=== PATIENT | male | born 1990 | race Caucasian/White ===

== ENCOUNTER 2025-01-11 06:35 | Day surgery (SDC) | payer BC, MEDICAID, OTHER ==
[2025-01-11] MEDS ORDERED: fentaNYL 100 MCG/2 ML SDV ONE (07:19)
[2025-01-11] MEDS ORDERED: Midazolam 1 MG/ML 2 ML SDV ONE (07:19)
[2025-01-11] MEDS ORDERED: Propofol 200 MG/20 ML SDV ONE (07:19)
[2025-01-11] MEDS: Lactated Ringers 1,000 ML IV SCH (07:38)
== END 2025-01-11 09:27 | disposition home or self-care (01) ==
LOC: JP.SDS 06:35
PROVIDERS: ATTEND Surgery
DX: K64.9 Unspecified hemorrhoids (principal)
CPT/HCPCS: 45398; J2250; J2704; J3010; J7120